=== PATIENT | male | born 1970 | race Caucasian/White ===

== ENCOUNTER 2023-04-29 04:06 | Day surgery (SDC) | payer OTHER ==
[2023-04-28 11:30] VITALS: BMI 26.2
[2023-04-29] MEDS ORDERED: LIDOCAINE HCL/PF 1% SDV 5ML VIAL ONE (07:38)
[2023-04-29] MEDS ORDERED: DEXAMETHASONE SOD PHOSPHATE 10 MG/1 ML VIAL ONE (07:38)
[2023-04-29 11:57] VITALS: BP 163/98; PULSE 78; RESP 20; TEMP 98.2
[2023-04-29] MEDS: LIDOCAINE 1% P/F 10 MG/ML VIAL INF ONE ×2 (12:24)
[2023-04-29] MEDS: IOHEXOL 180 MG/1 ML ML IJ ONE ×2 (12:27)
[2023-04-29] MEDS: DEXAMETHASONE SOD PHOSPHATE 10 MG/1 ML VIAL IVPUSH ONE ×3 (12:30)
== END 2023-04-29 13:15 | disposition home or self-care (01) ==
LOC: JASU-SURG 04:06
PROVIDERS: ATTEND Pain Medicine Pain Medicine
PROC: 3E0R3BZ Introduction of Anesthetic Agent into Spinal Canal, Percutaneous Approach (ICD-10-PCS; 2023-04-29)
PROC: 3E0R33Z Introduction of Anti-inflammatory into Spinal Canal, Percutaneous Approach (ICD-10-PCS; principal; 2023-04-29 13:30)
DX: M54.16 Radiculopathy, lumbar region (principal)
CPT/HCPCS: 76000-TC-FY; J1100